=== PATIENT | male | born 1965 ===

== ENCOUNTER 2018-03-13 07:45 | Day surgery (SDC) | payer OTHER ==
[~2018-03-13] VITALS: Ht 185.4 cm; Wt 63.2 kg
[~2018-03-13 07:45] MED LIST: ADVANCED PROBI625 MG PO; ALPHA LIPOIC AC50 MG PO; ATOR10; ATOR40TA; CLARITIN10 MG PO; DIUREX MAX50 MG PO; DULO30 PO; HUMULIN N100 UNIT/1 SC; HYDACE10B; HYDACE5; HYDACE5 PO; HYDACE5325; HYDCHL25; IBUP400 PO; INSLI100I; INSN100I SC; INSUASPI SC; INSULIN GLARGINE; MIRALAX17 GM PO; MONT10T PO; Norco 5-325 Ta1 EACH PO; Novolog Fl100 UNIT/1 SQ; POTA10T; PRAV20 PO; Pravachol80 MG PO; RXHYDACE PO; SPIHYD; Vibramycin100 MG PO
[2018-03-13] MEDS ORDERED: BIOTIN5000 MCG PO (08:33)
[2018-03-13] MEDS ORDERED: Novolog100 UNIT/1 SC (08:39)
[2018-03-13] MEDS ORDERED: BISA5EC PO (08:40)
== END 2018-03-13 10:31 | disposition home or self-care (01) ==
LOC: ORSCSDS 07:45
PROVIDERS: Student in an Organized Health Care Education/Training Program
PROC: 0DJD8ZZ Inspection of Lower Intestinal Tract, Via Natural or Artificial Opening Endoscopic (ICD-10-PCS; principal; 2018-03-13 08:45)
PROC: 0DB58ZX Excision of Esophagus, Via Natural or Artificial Opening Endoscopic, Diagnostic (ICD-10-PCS; principal; 2018-03-13 08:45)
PROC: 0DB68ZX Excision of Stomach, Via Natural or Artificial Opening Endoscopic, Diagnostic (ICD-10-PCS; principal; 2018-03-13 08:45)
PROC: 0DB98ZX Excision of Duodenum, Via Natural or Artificial Opening Endoscopic, Diagnostic (ICD-10-PCS; principal; 2018-03-13 08:45)
DX: K21.9 Gastro-esophageal reflux disease without esophagitis (principal); R13.10 Dysphagia, unspecified; K29.70 Gastritis, unspecified, without bleeding; K44.9 Diaphragmatic hernia without obstruction or gangrene; R63.4 Abnormal weight loss; Z80.0 Family history of malignant neoplasm of digestive organs; R10.9 Unspecified abdominal pain; R15.0 Incomplete defecation; I10 Essential (primary) hypertension; J44.9 Chronic obstructive pulmonary disease, unspecified; E78.5 Hyperlipidemia, unspecified; E11.42 Type 2 diabetes mellitus with diabetic polyneuropathy; Z79.4 Long term (current) use of insulin; F17.210 Nicotine dependence, cigarettes, uncomplicated; Z79.899 Other long term (current) drug therapy
CPT/HCPCS: 82947; 88305; 88342; J7120

== ENCOUNTER → 2019-03-05 | Outpatient (CLI) | payer OTHER ==
[~2019-03-05] MED LIST changes: +BIOTIN5000 MCG PO; +BISA5EC PO; +Novolog100 UNIT/1 SC
[2019-03-05 16:23] LABS: Sodium, Urine, Random 24 mmol/L (20-110)
[2019-03-05 16:57] LABS: Osmolality, Urine 277 mos/kg (15-1400)
== END | disposition home or self-care (01) ==
LOC: LAB 14:57 → LAB SHORT 14:57
PROVIDERS: Physician Assistant
DX: E87.1 Hypo-osmolality and hyponatremia (principal)
CPT/HCPCS: 83935; 84300

== ENCOUNTER → 2022-03-14 | Outpatient (CLI) | payer OTHER ==
[~2022-03-14] MED LIST changes: +Omeprazole20 M1 PO
[2022-03-14 16:48] LABS: Albumin, Blood 4.1 g/dL (3.4-5.0); Albumin/Globulin Ratio 1.1 (0.8-1.8); Bilirubin, Total 0.7 mg/dL (0.1-1.0); Bun/Creatinine Ratio 12.9 (12.0-20.0); Calcium, Blood 9.6 mg/dL (8.5-10.1); Creatinine, Blood 0.7 mg/dL (0.60-1.20); Globulin, Blood 3.7 g/dL (2.2-4.0); Potassium, Blood 4.3 mmol/L (3.5-5.5); Total Protein, Blood 7.8 g/dL (6.4-8.2)
== END | disposition home or self-care (01) ==
LOC: LAB 16:30 → LAB SHORT 16:30
PROVIDERS: Internal Medicine Endocrinology, Diabetes & Metabolism
DX: E10.65 Type 1 diabetes mellitus with hyperglycemia (principal)
CPT/HCPCS: 80053; 83036

== ENCOUNTER 2022-11-30 11:24 | Inpatient (IN) | payer OTHER ==
[~2022-11-30] VITALS: Ht 182.9 cm; Wt 75.0 kg
[2022-11-30] VITALS (21 sets, daily range): BP systolic 79–168; BP diastolic 55–120
[2022-11-30 12:05] LABS: Source, Urine Straight Cath
[2022-11-30 12:05] LABS: BASOPHILS ABSOLUTE AUTO 0.01 K/mm3 (0.00-0.23); BASOPHILS PERCENT AUTO 0 % (0-2); EOSINOPHILS PERCENT AUTO 0 % (0-6); Hematocrit 38.4 % (37.0-53.0); Hemoglobin 14.1 g/dL (13.5-17.5); IMMATURE GRAN ABSOLUTE AUTO 0.07 K/mm3 (0.00-0.10); IMMATURE GRAN PERCENT AUTO 1 % (0-1); LYMPHOCYTES ABSOLUTE AUTO 1.46 K/mm3 (0.84-5.20); LYMPHOCYTES PERCENT AUTO 11 % (21-46); MONOCYTES ABSOLUTE AUTO 1.08 K/mm3 (0.16-1.47); MONOCYTES PERCENT AUTO 8 % (4-13); Mean Corpuscular HGB 31.5 pg (26.0-34.0); Mean Corpuscular HGB Conc 36.7 g/dL (31.5-36.5); Mean Corpuscular Volume 86 fL (80-100); Mean Platelet Volume 9.2 fL (9.1-12.4); NEUTROPHILS ABSOLUTE AUTO 10.44 K/mm3 (1.96-9.15); NEUTROPHILS PERCENT AUTO 80 % (41-73); Platelet Count 286 K/mm3 (150-400); RDW Coefficient Variation 13.7 % (11.7-14.2); RDW Standard Deviation 43.6 fL (35.1-46.3); Red Blood Cell Count 4.47 M/mm3 (4.30-5.90); White Blood Cell Count 13.06 K/mm3 (4.00-11.30)
[2022-11-30 12:20] LABS: Alanine Aminotransfer (ALT/SGP 49 U/L (12-78); Albumin, Blood 3.3 g/dL (3.4-5.0); Alk Phos 90 U/L (50-136); Anion Gap 6 mmol/L (6-16); Aspartate Aminotrans (AST/SGOT 124 U/L (12-37); Bilirubin, Total 1.3 mg/dL (0.1-1.0); Blood Urea Nitrogen 11 mg/dL (8-24); CO2, Blood 28 mmol/L (21-32); Calcium, Blood 8.9 mg/dL (8.5-10.1); Chloride, Blood 94 mmol/L (98-108); Creatinine, Blood 0.69 mg/dL (0.60-1.20); Ethanol (Alcohol), Blood, Med <3 mg/dL; Globulin, Blood 3.3 g/dL (2.2-4.0); Glomerular Filtration Rate 107 (60-); Glucose, Blood 71 mg/dL (70-99); Potassium, Blood 4.1 mmol/L (3.5-5.5); Sodium, Blood 128 mmol/L (136-145); Total Protein, Blood 6.6 g/dL (6.4-8.2)
[2022-11-30 12:20] LABS: Appearance, Urine Clear (Clear); Bilirubin, Urine Neg (Neg); Blood, Urine 4+ (Neg); Color, Urine Yellow (P-Yellow); Glucose Qualitative, Urine Neg (Neg); Ketones, Urine 3+ (Neg); Leukocyte Esterase, Urine Neg (Neg); Nitrite, Urine Neg (Neg); Protein, Urine 2+ (Neg); Specific Gravity, Urine 1.015 (1.003-1.022); Urobilinogen, Urine NORM (Normal)
[2022-11-30 12:27] LABS: Bacteria Few /hpf; Squamous Epithelial Cells Rare /hpf (Few)
[2022-11-30 12:32] LABS: U Amphetamine Screen Not Detected; U Barbituate Screen Not Detected; U Benzodiazapine Screen Not Detected; U Buprenorphine Screen Not Detected; U Cannabinoids Screen Not Detected; U Cocaine Screen Not Detected; U Methadone Screen Not Detected; U Methamphetamine Screen Not Detected; U Opiates Screen Not Detected; U Oxycodone Screen Not Detected; U Phencyclidine Screen Not Detected; U Propoxyphene Screen Not Detected
[2022-11-30 15:14] LABS: Influenza A, PCR NEGATIVE (NEGATIVE); Influenza B, PCR NEGATIVE (NEGATIVE); Resp Syncytial Virus, PCR NEGATIVE (NEGATIVE); SARS-Cov-2 (COVID-19) PCR, MMC NEGATIVE (NEGATIVE)
[2022-11-30 15:54] LABS: Source, Urine Foley catheter
[2022-11-30 16:01] LABS: Appearance, Urine Hazy (Clear); Bilirubin, Urine Neg (Neg); Blood, Urine 3+ (Neg); Color, Urine Yellow (P-Yellow); Glucose Qualitative, Urine 2+ (Neg); Ketones, Urine 2+ (Neg); Leukocyte Esterase, Urine Neg (Neg); Nitrite, Urine Neg (Neg); Protein, Urine 2+ (Neg); Specific Gravity, Urine 1.015 (1.003-1.022); Urobilinogen, Urine NORM (Normal)
[2022-11-30 16:20] LABS: Squamous Epithelial Cells Rare /hpf (Few); White Blood Cells, Urine 0-2 /hpf (0-5)
[2022-11-30 16:21] LABS: Amorphous Light (0-Heavy); Bacteria Mod /hpf; Calcium Oxalate Crystals Mod /hpf
[2022-11-30 17:48] LABS: Prolactin 8.7 ng/mL (2.5-17.4)
[2022-11-30 17:56] LABS: Phosphorus, Blood 2.9 mg/dL (2.5-4.9)
--- NOTE | 2022-11-30 18:45 | NUR ---
Assumed care of pt with Ana Laura RN on arrival to ICU 5 at 1640 from emergency department. Slid from [facility] to bed with several staff including respiratory care. Arrived intubated and on ventilator. Dr Smith in room to see patient. Family at bedside and updated. Neuro: Receiving propofol at 15 mcg/kg/min. Pt had sedation interruption and began fighting ventilator but did not have purposeful movement and did not follow commands. Sedation restarted due to patient looking visibly uncomfortable and fighting ventilator. Mild hypothermia per core temp monitoring. Ruben hugger in place. Resp: 8.0 cm ETT at expected placement of 25 cm at teeth. Vent settings ACVC 14/400/5/30%. SpO2 90% or greater with these settings. Cardiac: SR per monitor. BP borderline. Call placed to Dr Smith to update. Provider prescribed additional bolus of NS, which will be followed by norephinephrine if pt does not respond. GI: OG tube in place, clamped. ABD soft, nondistended. No signs of tenderness with palpation. : Temp das in place. Skin: Many abrasions, areas of pressure injury. Photos placed in chart.
--- NOTE | 2022-11-30 19:00 | NUR ---
ASSUMED CARE OF PT. INTUBATED AND SEDATED AT TIME. VENT 14/400/5/30% BP 90/61 HR 82 TEMP 97.1 TEMP PRICE CATH DRAINING TO GRAVITY WITH ORANGE/YELLOW URINE PRESENT. 800 MLS DRAINED AND DOCUMENTED. SEE FULL ASSESSMENT FOR FURTHER INFORMATION.
[2022-11-30] MEDS ORDERED: ALBU90OI INH (19:30)
[2022-11-30] MEDS ORDERED: Natrol Alpha 3300 MG PO (19:31)
[2022-11-30] MEDS ORDERED: ALEVAZOL56.7 G1 TOP (19:32)
[2022-11-30] MEDS ORDERED: HUMULIN N100 UNIT/3 SC (19:34)
[2022-11-30] MEDS ORDERED: NOVOLOG FL100 UNIT/3 SC (19:34)
[2022-11-30] MEDS ORDERED: Prinivil10 MG PO (19:35)
[2022-11-30] MEDS ORDERED: Crestor20 MG PO (19:35)
[2022-11-30] MEDS ORDERED: TRIDERM28.4 GM TOP (19:36)
--- NOTE | 2022-11-30 23:25 | NUR ---
PT TEMP NOW AT 100.2. FAN ON PT AT THIS TIME WITH ICE PACKS UNDER AXILLARY AREAS.
--- NOTE | 2022-11-30 23:26 | NUR ---
PT GAGGING CONSTANTLY AND FIGHTING THE VENT. PROPOFOL TITRATED TO 17 MCG AT THIS TIME. WILL CONTINUE TO MONITOR FOR MORE TITRATION NEEDS.
[2022-12-01] VITALS (88 sets, daily range): BP systolic 77–143; BP diastolic 54–72
[2022-12-01 03:34] LABS: BASOPHILS ABSOLUTE AUTO 0.04 K/mm3 (0.00-0.23); BASOPHILS PERCENT AUTO 0 % (0-2); EOSINOPHILS ABSOLUTE AUTO 0.01 K/mm3 (0.00-0.68); EOSINOPHILS PERCENT AUTO 0 % (0-6); Hematocrit 36.3 % (37.0-53.0); IMMATURE GRAN ABSOLUTE AUTO 0.03 K/mm3 (0.00-0.10); IMMATURE GRAN PERCENT AUTO 0 % (0-1); LYMPHOCYTES PERCENT AUTO 13 % (21-46); MONOCYTES ABSOLUTE AUTO 0.82 K/mm3 (0.16-1.47); MONOCYTES PERCENT AUTO 7 % (4-13); Mean Corpuscular HGB 31.9 pg (26.0-34.0); Mean Corpuscular HGB Conc 35.8 g/dL (31.5-36.5); Mean Corpuscular Volume 89 fL (80-100); Mean Platelet Volume 9.3 fL (9.1-12.4); NEUTROPHILS ABSOLUTE AUTO 9.12 K/mm3 (1.96-9.15); NEUTROPHILS PERCENT AUTO 79 % (41-73); Platelet Count 232 K/mm3 (150-400); RDW Coefficient Variation 14.1 % (11.7-14.2); RDW Standard Deviation 45.5 fL (35.1-46.3); Red Blood Cell Count 4.08 M/mm3 (4.30-5.90); White Blood Cell Count 11.52 K/mm3 (4.00-11.30)
[2022-12-01 03:54] LABS: Albumin, Blood 2.7 g/dL (3.4-5.0); Albumin/Globulin Ratio 0.9 (0.8-1.8); Bilirubin, Total 1.1 mg/dL (0.1-1.0); Bun/Creatinine Ratio 16.7 (12.0-20.0); Calcium, Blood 8.4 mg/dL (8.5-10.1); Creatinine, Blood 0.6 mg/dL (0.60-1.20); Globulin, Blood 2.9 g/dL (2.2-4.0); Magnesium, Blood 1.9 mg/dL (1.6-2.4); Phosphorus, Blood 2.9 mg/dL (2.5-4.9); Potassium, Blood 3.6 mmol/L (3.5-5.5); Total Protein, Blood 5.6 g/dL (6.4-8.2)
--- NOTE | 2022-12-01 04:03 | NUR ---
REPORT GIVEN TO LACIE Mariee RN.
--- NOTE | 2022-12-01 04:06 | NUR ---
THIS RN TO ASSUME PRIMARY CARE OF PT.
--- NOTE | 2022-12-01 06:24 | NUR ---
SHIFT SUMMARY: NO ACUTE CHANGES OVERNIGHT; PT REMAINS INTUBATED AND SEDATED WITH VENT SETTINGS AC/VC 14/400/5/30% AND PROPOFOL GTT @ 30 MCG/KG/HR. PT RESPONSIVE TO PAIN STIMULI BUT IS NOT OPENING EYES/FOLLOWING DIRECTIONS. PT LUNG SOUNDS ARE CLEAR THROUGHOUT; SPO2 98<, PT COUGHING FREQUENTLY. PT SR ON MONITOR WITH SBP 90'S AND LEVO GTT @ 4 MCG. PT HAS OGT IN PLACE AND CLAMPED, FLUSHED FINE. TEMP FOLET PATENT AND DRAINING TO GRAVITY WITH DARK YELLOW URINE OUTPUT. BED LOWERED, WILL CONTINUE TO MONITOR UNTIL ONCOMING RN ARRIVES.
--- NOTE | 2022-12-01 09:36 | NUR ---
AM NOTE... ASSUMED CARE OF PT AT 0700. PT IS INTUBATED AND SEDATED, VENT SETTINGS ARE AC/VC: 14/400/5/30% WITH O2 SAT>95% L/S CLEAR T/O. HE IS SEDATED ON PROPOFOL AT 30MCG/KG. HE IS IN SR IN THE 60'S-70'S, BP IS SOFT, LEVOPHED DRIP RUNNING AT 2MCG/MIN TO KEEP MAPS>65. NO EDEMA IS NOTED ON THIS ASSESSMENT. OG TUBE IS CLAMPED AT THIS TIME, BT PRESENT AND HYPOACTIVE, ABD IS SOFT TO PALPATION. THE PT'S TEMP PRICE IS PATENT AND DRAINING TO GRAVITY. PT'S CURRENT TEMP IS 98.4. THE PT'S RIGHT PUPIL IS APROX 4MM MISSHAPEN AND UNRESPONSIVE, LEFT PUPIL IS 2 AND BRISK. WILL CONTINUE TO MONITOR.
[2022-12-01 15:59] LABS: Acinetobacter baumannii DNA Not Detected copy/mL (NOT DETECT); Enterobacter cloacae DNA Not Detected copy/mL (NOT DETECT); Escherichia coli DNA Not Detected copy/mL (NOT DETECT); Haemophilus influenzae DNA Not Detected copy/mL (NOT DETECT); Klebsiella aerogenes DNA Not Detected copy/mL (NOT DETECT); Klebsiella oxytoca DNA Not Detected copy/mL (NOT DETECT); Klebsiella pneumoniae DNA Not Detected copy/mL (NOT DETECT); Moraxella catarrhalis DNA Not Detected copy/mL (NOT DETECT); Proteus sp DNA Not Detected copy/mL (NOT DETECT); Pseudomonas aeruginosa DNA Not Detected copy/mL (NOT DETECT); Serratia marcescens DNA Not Detected copy/mL (NOT DETECT); Staphylococcus aureus DNA Not Detected copy/mL (NOT DETECT); Streptococcus agalactiae DNA Not Detected copy/mL (NOT DETECT); Streptococcus pneumoniae DNA Not Detected copy/mL (NOT DETECT); Streptococcus pyogenes DNA Not Detected copy/mL (NOT DETECT)
[2022-12-01 16:00] LABS: Adenovirus DNA Not Detected (NOT DETECT); Chlamydia pneumonia Not Detected (NOT DETECT); Human Coronavirus RNA Not Detected (NOT DETECT); Human Metapneumovirus RNA Not Detected (NOT DETECT); Influenza virus A RNA Not Detected (NOT DETECT); Influenza virus B RNA Not Detected (NOT DETECT); Legionella pneumophila Not Detected (NOT DETECT); Mycoplasma pneumoniae Not Detected (NOT DETECT); Parainfluenza virus RNA Not Detected (NOT DETECT); Respiratory syncytial Vir RNA Not Detected (NOT DETECT); Rhinovirus+Enterovirus RNA Not Detected (NOT DETECT)
--- NOTE | 2022-12-01 17:36 | NUR ---
SHIFT SUMMARY.... NO ACUTE NEGATIVE CHANGES NOTED THIS SHIFT. THE PT'S SEDATION AND LEVOPHED WAS OFF FROM 0945 TO 1400 WHEN THE PT WAS TAKEN TO CT FOR A HEAD CT, ONCE BACK IN THE ROOM THE SEDATION WAS STOPPED AT 1445. WITH THE SEDATION OFF THE PT WILL RESPOND TO NOXIOUS STIMULI SUCH ORAL CARE, HE WILL OPEN HIS EYES, AND SHAKE HIS HEAD BACK AND FORTH BUT WILL NOT FOLLOW DIRECTIONS. TUBE FEEDS WERE STARTED PER ORDERS AT 1445, VITAL HP AT 30MLS/HR WITH 30ML WATER FLUSHES Q4HRS. THE PT'S CBGs ARE NOW CHECKED Q4. A SPUTUM SAMPLE WAS SENT TO THE LAB D/T INCREASED MODERATE AMOUNTS OF THICK CREAMY YELLOW SECRETIONS (PROVIDER AWARE.). NO CHANGES WERE MADE TO THE VENT SETTINGS: AC/VC:14/400/5/30%. THE PT'S TEMP PRICE IS PATENT AND DRAINED 350MLS OF RAH URINE THIS SHIFT. PT HAS NOT HAD A BM. THE PT'S FAMILY HAS BEEN AT THE BEDSIDE MOST OF THIS SHIFT. PER THE PT'S MOTHER THE PT IS BLIND IN HIS RIGHT EYE AND THE PUPIL HAS BEEN THAT WAY SINCE HIS TBI. WILL CONTINUE TO MONITOR UNTIL REPORT IS GIVEN TO ONCOMING RN.
--- NOTE | 2022-12-01 21:22 | NUR ---
ASSUMPTION OF CARE/ASSESSMENT: ASSUMED CARE OF PT AT 1900; REPORT RECIEVED FROM BRITNEY CASTILLO. PT INTUBATED WITH SETTINGS AC/VC 14/400/5/30%, PT NOT SEDATED AND REMAINS AMS, RESPONSIVE TO VERBAL STIMULI BUT DOES NOT FOLLOWING DIRECTIONS. PT OBSERVED RESTLESS IN BED FREQUENTLY AND COUGHING/TACHYNEIC ON VENT. PT MEDICATED WITH FENTANYL PER EMAR AND APPEARS TO HAVE HELPED WITH COMFORT AND VENT COMPLIANCE. PT SR ON MONITOR WITH HR 70-80 AND SBP 110-130; CONTINUOUS SENIOR DATA SCIENTIST IN PLACE. PT LUNG SOUNDS ARE CLEAR, SPO2 96< AND ETT SUCTIONING HAS MODERATE, THICK SECRETIONS. ABD SOFT, NON-TENDER AND HYPOACTIVE BOWEL SOUNDS IN ALL QUADRANTS; OGT IN PLACE AND VHP INFUSING AT 30 MLS/HR. TEMP PRICE IN PLACE AND DRAINING TO GRAVITY; URINE DARK YELLOW AND CLEAR, PT REMAINS AFEBRILE. PT R. WRIST IN RESTRAINT AND L. WRIST OUT OF RESTRAINT DUE TO L. ARM BEING FLACCID; PT MOVING BOTH LEGS FREQUENTLY IN BED, L. LEG OBSERVED TO BE MORE WEAK COMPARED TO R. LEG. NS @ 100 MLS/HR. BED LOWERED, WILL CONTINUE TO MONITOR.
[2022-12-02] VITALS (73 sets, daily range): BP systolic 82–160; BP diastolic 40–92
[2022-12-02 03:16] LABS: Hematocrit 36.1 % (37.0-53.0); Hemoglobin 12.6 g/dL (13.5-17.5); Mean Corpuscular HGB 31.7 pg (26.0-34.0); Mean Corpuscular HGB Conc 34.9 g/dL (31.5-36.5); Mean Corpuscular Volume 91 fL (80-100); Mean Platelet Volume 9.3 fL (9.1-12.4); Platelet Count 238 K/mm3 (150-400); RDW Coefficient Variation 14.2 % (11.7-14.2); RDW Standard Deviation 48.1 fL (35.1-46.3); Red Blood Cell Count 3.97 M/mm3 (4.30-5.90); White Blood Cell Count 9.49 K/mm3 (4.00-11.30)
[2022-12-02 03:39] LABS: Bun/Creatinine Ratio 21.1 (12.0-20.0); Calcium, Blood 8.3 mg/dL (8.5-10.1); Creatinine, Blood 0.52 mg/dL (0.60-1.20); Potassium, Blood 4.2 mmol/L (3.5-5.5)
--- NOTE | 2022-12-02 06:25 | NUR ---
SHIFT SUMMARY: NO ACUTE CHANGES THROUGHOUT THE SHIFT; VSS. PT REMAINS INTUBATED WITH SETTINGS AC/VC 14/400/5/30% AND SEDATION STARTED AGAIN AT 0500, PROPOFOL GTT @ 20 MCG. THROUGHOUT THE NIGHT PT INCREASININGLY RESTLESS/AGGITATED IN BED, SHAKING HEAD, SWINGING LEGS OFF SIDE OF BED; PT MEDICATED WITH FENTANYL BUT STARTED NEEDING TOO FREQUENT OF DOSES. PROPOFOL GTT STARTED FOR VENT COMPLIANCE AND COMFORT. WILL CONTINUE TO MONITOR UNTIL ONCOMING RN ARRIVES.
--- NOTE | 2022-12-02 12:37 | NUR ---
REASSESSMENT SEDATION TURNED OFF AT 1045 AND PT HAS BEEN WAKING UP SLOWLY SINCE THEN. HE IS STILL DROWSY, BUT IS FOLLOWING COMMANDS WHEN PROMPTED. RT SWITCHED PT TO SPONTANEOUS MODE, PRESSURE OF 8, PEEP 5. PT IS DOING WELL ON THESE SETTINGS WITH VOLUMES IN THE 400-500S, BUT RR HAS BEEN A LITTLE SLOW, CURRENTLY 8. DR. COOK WAS AT THE BEDSIDE AND EVALUATED PT. PLAN IS TO RE EVALUATE IN AN HOUR AND GO FROM THERE. TUBE FEED STOPPED PER DR. COOK'S ORDERS IN CASE OF EXTUBATION TODAY. PT'S LUNGS REMAIN CLEAR. SCANT SPUTUM PRODUCTION, BUT MODERATE ORAL SECRETIONS. SR, BP STABLE. PRICE WITH CL YELLOW OUTPUT. PT'S MOTHER AND DAUGHTER ARE AT THE BEDSIDE. DR. COOK UPDATED PT'S MOTHER WHO IS PRIMARILY BENINESE SPEAKING. DAUGHTER UPDATED ROUTINELY BY NURSING STAFF SHE IS PRIMARILY BOLIVIAN SPEAKING.
--- NOTE | 2022-12-02 13:24 | NUR ---
EXTUBATE PT CONTINUED TO DO WELL ON WEANING TRIAL. DR. COOK GAVE ORDER TO EXTUBATE. RT EXTUBATED PT AT 1315. PT RESISTED THE NASAL CANNULA BEING PLACED ON HIS FACE AND WAS MAINTAINNG SATS OF 96% ON RA SO IT WAS LEFT OFF. PT COUGHING UP SMALL AMT OF SPUTUM. AT FIRST HE NEEDED SOME SUCTIONING TO GET IT OUT OF THE BACK OF HIS THROAT, BUT NOW HE APPEARS TO BE CLEARING AND SWALLOWING THE SPUTUM. PT'S MOTHER AT THE BEDSIDE. CONTINUING TO MONITOR.
--- NOTE | 2022-12-02 16:49 | NUR ---
SHIFT SUMMARY PT WAS EXTUBATED EARLY THIS AFTERNOON AND HAS BEEN DOING WELL ONR A. CURRENT SPO2 IS 98% WITH RR 17. PT COUGHS A LOT WHEN HE IS AWAKE, BUT IT STOPS WHEN HE IS RESTING. PT'S BERNABE REPORTS THAT AT BASELINE PT HAS A SIGNIFICANT "SMOKER'S COUGH" THAT SOUNDS SIMILAR TO HIS CURRENT COUGH. PT APPEARS TO STILL BE CLEARING HIS SECRETIONS BY EITHER SPITTING THEM OUT OR SWALLOWING THEM. LUNGS ARE CLEAR AFTER PT HAS COUGHED. PT IS STILL DROWSY, BUT WAKES TO VOICE. HE NODS OR SHAKES HIS HEAD TO ANSWER QUESTIONS. HE HAS NOT ATTEMPTED TO SPEAK YET, EVEN WHEN PROMPTED. HE APPEARS AGITATED OR IRRITATED WHEN AWAKE. PRICE DRAINING CL YELLOW URINE WITH GOOD OUTPUT. FAMILY HAS BEEN UPDATED THROUGHOUT THE DAY BY DR. COOK.
--- NOTE | 2022-12-02 19:00 | NUR ---
ASSUMED CARE CARE WAS ASSUMED OF THE PT AT 1900. PT ON RA, O2 SATS >95%. PT HAS HACKING, SEMI-PRODUCITVE COUGH. COUGHING UP COPIOUS AMOUNTS OF SPUTUM. PT AT TIMES INDEPENDENTLY SELF SUCTIONING. RESISTANT TO HAVE HELP FROM RN. CARIDAC MONITORING REFLECTING NSR, SBP 120s. HR 70s. TEMP PRICE PATENT AND DRAINING TO GRAVITY.
--- NOTE | 2022-12-02 21:45 | NUR ---
THIS RN TO ASSUME PRIMARY CARE.
[2022-12-03] VITALS (18 sets, daily range): BP systolic 103–131; BP diastolic 47–73
[2022-12-03 03:43] LABS: BASOPHILS ABSOLUTE AUTO 0.04 K/mm3 (0.00-0.23); BASOPHILS PERCENT AUTO 0 % (0-2); EOSINOPHILS ABSOLUTE AUTO 0.03 K/mm3 (0.00-0.68); EOSINOPHILS PERCENT AUTO 0 % (0-6); Hematocrit 38.1 % (37.0-53.0); Hemoglobin 13.4 g/dL (13.5-17.5); IMMATURE GRAN ABSOLUTE AUTO 0.04 K/mm3 (0.00-0.10); IMMATURE GRAN PERCENT AUTO 0 % (0-1); LYMPHOCYTES ABSOLUTE AUTO 1.55 K/mm3 (0.84-5.20); LYMPHOCYTES PERCENT AUTO 14 % (21-46); MONOCYTES ABSOLUTE AUTO 0.71 K/mm3 (0.16-1.47); MONOCYTES PERCENT AUTO 6 % (4-13); Mean Corpuscular HGB 31.5 pg (26.0-34.0); Mean Corpuscular HGB Conc 35.2 g/dL (31.5-36.5); Mean Corpuscular Volume 90 fL (80-100); Mean Platelet Volume 9.5 fL (9.1-12.4); NEUTROPHILS ABSOLUTE AUTO 8.95 K/mm3 (1.96-9.15); NEUTROPHILS PERCENT AUTO 79 % (41-73); Platelet Count 284 K/mm3 (150-400); RDW Standard Deviation 46.3 fL (35.1-46.3); Red Blood Cell Count 4.25 M/mm3 (4.30-5.90); White Blood Cell Count 11.32 K/mm3 (4.00-11.30)
[2022-12-03 04:07] LABS: Albumin, Blood 2.5 g/dL (3.4-5.0); Albumin/Globulin Ratio 0.7 (0.8-1.8); Bilirubin, Total 0.8 mg/dL (0.1-1.0); Bun/Creatinine Ratio 15.8 (12.0-20.0); Calcium, Blood 8.6 mg/dL (8.5-10.1); Creatinine, Blood 0.51 mg/dL (0.60-1.20); Globulin, Blood 3.5 g/dL (2.2-4.0); Magnesium, Blood 1.9 mg/dL (1.6-2.4); Phosphorus, Blood 2.1 mg/dL (2.5-4.9); Potassium, Blood 3.7 mmol/L (3.5-5.5)
--- NOTE | 2022-12-03 06:30 | NUR ---
SHIFT SUMMARY: NO ACUTE CHANGES THROUGHOUT THE NIGHT; VSS THROUGHOUT THE SHIFT. PT SLEPT ON AND OFF. PT REPOSITIONS SELF AND DECLINES ANY PILLOWS OR BLANKETS IN BED. PT HAD A BOWEL MOVEMENT THIS SHIFT; DEPENDS IN PLACE, PRICE PATENT AND DRAINING TO GRAVITY. PT CONTINUES TO HAVE PRODUCTIVE, WET COUGH AND IS USING ORAL SUCTIONING INDEPENDENTLY. BED LOWERED, CALL LIGHT IN REACH. WILL CONTINUE TO MONITOR UNTIL ONCOMING RN ARRIVES.
--- NOTE | 2022-12-03 08:42 | NUR ---
CARE ASSUMPTION DURING BEDSIDE SHIFT REPORT Karthik MEDELLIN RN THE PT IS SITTING IN BED AWAKE TRACKING THIS RN I WALKED ACROSS HIS ROOM. PT'S ABILITY TO COMMUNICATE IS LIMITED DUE TO LIMITED UPPER SORBIAN BUT PT DOES APPEAR TO UNDERSTAND ME WHEN HE IS SPOKEN TO HE IS FOLLOWING COMMANDS AND NODDING HIS HEAD IN AGREEMENT. MONITOR SHOWING SB 50'S. UPDATE THIS RN USED PROFESSOR OF KINESIOLOGY PHONE TO SPEEK WITH THE PT, AT THIS TIME THE PT WAS ASKED ABOUT PAIN WHERE HE EXPRESSED SEVERE MODERATE CHEST PRESSURE, PT DENIED ANY FEELINGS OF SOB. PT IS ORIENTED X3. PROVIDER UPDATED ON PT'S REPORT OF CHEST PRESSURE, EKG AND TROPONIN ORDERED.
--- NOTE | 2022-12-03 14:57 | NUR ---
CALLED TO PT ROOM BY A VOLUNTEER FROM [facility]. VOLUNTEER STATES SHE DIDN'T SEE A NPO SIGN SO THOUGHT SHE COULD GIVE PT A COMMUNION WAFER AND THEN GAVE BECAUSE PT WAS "COUGHING". WENT TO ROOM, PT EVALUATED EARLIER IN DAY AND APPROVED FOR PUREE DIET, SITTING AT 90 DEGREES, SUPERVISION, ECT. PT LAYING DOWN FLAT WHEN I ENTERED ROOM. SAT UP TO 90'S, PT COUGHING AND HAS A CHOKING APPERANCE, SUCTIONED ORAL CAVITY AND CLEARED FLUID AND SALIVA, RECOVERED AFTER A FEW MINUTES. NOTIFIED HEAT TREATMENT TECHNICIAN AND PROVIDER, NO NEW ORDERS AT THIS TIME. SATS 99% WILL CONTINUE TO MONITOR.
--- NOTE | 2022-12-03 15:11 | NUR ---
ATTEMPTED COMMODE ATTEMPTED TO USE LIFT TO PLACE PT ON COMMODE FOLLOWING BEDPAN REFUSAL. PT VISIBLY FRUSTRATED AND ATTEMPTING TO REMOVE LEGS FROM PROPER POSITIONING WHILE IN LIFT. PT UNABLE TO HOLD SELF UPRIGHT WITHOUT 3P STAFF ASSIST. PT UNABLE TO FOLLOW VERBAL INSTRUCTIONS FROM THIS RN. PT PLACED BACK IN BED AND EDUCATED ON SAFETY. DISCUSSED PLAN WITH PT TO USE BEDPAN UNTIL ABLE TO FOLLOW INSTRUCTION. PT VISIBLY FRUSTRATED BY THIS; FROWNING AND GRUNTING DURING DISCUSSION. BED ALARM ON. CALL LIGHT WITHIN REACH.
--- NOTE | 2022-12-03 18:09 | NUR ---
END OF SHIFT NOTE ASSUMED CARE OF THIS PT THIS AFTERNOON. PT LETHARGIC, SLOUCHED TO THE LEFT IN BED. REPOSITIONED WITH PILLOWS FREQUENTLY. UNABLE TO FULLY ASSESS ORIENTATION DUE TO LACK OF ENGAGEMENT FROM PT. ABLE TO FOLLOW SOME COMMANDS, REFUSES TO FOLLOW OTHERS. PER PT DAUGHTER, PT IS FLUENT IN MONTSERR[place] AND ONLY OCCASIONALLY NEEDS TO SAY A WORD IN GERMAN. HR 80'S, BP STABLE. SPO2 >95% ON RA. PRODUCTIVE COUGH, PT ABLE TO SELF SUCTION. SEE PREVIOUS NOTE REGARDING POTENTIAL ASPIRATION. PT BLADDER SCANNED R/T INABILITY TO URINATE, VOLUME 270. PT ABLE TO VOID AFTER SEVERAL MINUTES IN URINAL. NO BM, SEE PREVIOUS NOTE REGARDING ATTEMPT TO USE COMMODE. BED ALARM ON, CALL LIGHT WITHIN REACH.
--- NOTE | 2022-12-03 21:40 | NUR ---
NIA PLACEMENT PATIENT ATTEMPTING TO GET OOB MULTIPLE TIMES. PATIENT UNSTEADY AND VERY WEAK, MAXIMUM ASSIST D/T Hx CVA AND WEAKNESS. PATIENT CONFUSED AND NOT FOLLOWING COMMANDS. UNABLE TO REDIRECT PATIENT AND PATIENT PULLING/PUSHING AGAINST STAFF WHILE ATTEMPTING TO GET PATIENT BACK INTO BED SAFELY. CALL PLACED TO RESIDENT, ORDER FOR NIA VEST RECIEVED. PATIENT TOLERATING VEST WELL AT THIS TIME, NO SIGNS OF DISTRESS NOTED. SEE INITIATION ASSESSMENT. CALL LIGHT IN REACH, BED IN LOW POSITION, BED ALARM ON.
[2022-12-04 05:47] VITALS: BP 129/66
--- NOTE | 2022-12-04 06:29 | NUR ---
SHIFT SUMMARY PATIENT ALERT, ORIENTED x2, WITH Hx CVA AND TBI, IMPULSIVE AND WILL SWAT AT STAFF AT TIMES. NIA VEST AND BED ALARM ON FOR SAFETY D/T IMPULSIVITY AND PATIENT ATTEMPTING TO GET OOB MULTIPLE TIMES DURING THE NIGHT. PATIENT VERY WEAK AND UNABLE TO HOLD SELF UP. VITALS STABLE, PATIENT ON RA WITH O2 SAT >90%. PATIENT WITH OCCASIONAL NONPRODUCTIVE COUGH, ATTEMPTS TO USE SUCTION. PATIENT ABLE TO HAVE BOWEL MOVEMENT DURING THE NIGHT, USING URINAL WITH ASSISTANCE PATIENT WILL GRAB AT LINES/CORDS/URINAL ETC. ATTENDS IN PLACE. NO OTHER ACUTE CHANGES THIS SHIFT, WILL REPORT TO DAY SHIFT RN.
[2022-12-04 07:39] VITALS: BP 127/65
[2022-12-04 07:59] LABS: BASOPHILS ABSOLUTE AUTO 0.02 K/mm3 (0.00-0.23); BASOPHILS PERCENT AUTO 0 % (0-2); EOSINOPHILS ABSOLUTE AUTO 0.11 K/mm3 (0.00-0.68); EOSINOPHILS PERCENT AUTO 1 % (0-6); Hematocrit 37.1 % (37.0-53.0); IMMATURE GRAN ABSOLUTE AUTO 0.03 K/mm3 (0.00-0.10); IMMATURE GRAN PERCENT AUTO 0 % (0-1); LYMPHOCYTES ABSOLUTE AUTO 1.36 K/mm3 (0.84-5.20); LYMPHOCYTES PERCENT AUTO 16 % (21-46); MONOCYTES ABSOLUTE AUTO 0.77 K/mm3 (0.16-1.47); MONOCYTES PERCENT AUTO 9 % (4-13); Mean Corpuscular HGB 31.4 pg (26.0-34.0); Mean Corpuscular Volume 90 fL (80-100); NEUTROPHILS ABSOLUTE AUTO 6.09 K/mm3 (1.96-9.15); NEUTROPHILS PERCENT AUTO 73 % (41-73); Platelet Count 284 K/mm3 (150-400); RDW Coefficient Variation 14.1 % (11.7-14.2); RDW Standard Deviation 46.2 fL (35.1-46.3); Red Blood Cell Count 4.14 M/mm3 (4.30-5.90); White Blood Cell Count 8.38 K/mm3 (4.00-11.30)
[2022-12-04 08:18] LABS: Albumin, Blood 2.8 g/dL (3.4-5.0); Albumin/Globulin Ratio 0.8 (0.8-1.8); Bilirubin, Total 1.1 mg/dL (0.1-1.0); Bun/Creatinine Ratio 18.1 (12.0-20.0); Calcium, Blood 8.9 mg/dL (8.5-10.1); Creatinine, Blood 0.44 mg/dL (0.60-1.20); Globulin, Blood 3.3 g/dL (2.2-4.0); Potassium, Blood 3.8 mmol/L (3.5-5.5); Total Protein, Blood 6.1 g/dL (6.4-8.2)
[2022-12-04 11:24] VITALS: BP 129/67
[2022-12-04 15:43] VITALS: BP 125/69
--- NOTE | 2022-12-04 17:14 | NUR ---
END OF SHIFT NOTE PT ALERT AND ORIENTED X1-2, WITH HX CVA AND TBI PT REMAINS IMPULSIVE. NOT COMPLIANT WITH ALL COMMANDS. NIA VEST ON FOR PT SAFETY D/T ATTEMPTS TO GET OUT OF BED AND SIGNIFICANT WEAKNESS. HR 70'S, BP STABLE. DENIES CP/PRESSURE. SPO2 >95% ON RA, DENIES SOB. FREQUENT COUGH WITH MODERATE THIN SECRETIONS, PT ABLE TO SELF SUCTION. UP TO CHAIR WITH PHYSICAL THERAPY, ABLE TO STAND AND PIVOT. PT ABLE TO USE URINAL, INCONTINENT AT TIMES. NO BM THIS SHIFT. FAMILY AT BEDSIDE T/O SHIFT. CALL LIGHT WITHIN REACH, NO FURTHER NEEDS AT THIS TIME.
[2022-12-04 21:25] VITALS: BP 139/77
--- NOTE | 2022-12-04 21:40 | NUR ---
I CALLED DR DE LA TORRE ABOUT CBG OF 369. SHE ORDERED AN ADDITIONAL 5UNITS OF REGULAR INSULIN ON TOP OF THE SSC OF 5UNITS. 10 UNITS TOTAL FOR HS DOSAGE.
[2022-12-05] VITALS: BP 146/72
[2022-12-05 03:37] VITALS: BP 135/66
[2022-12-05 04:17] LABS: BASOPHILS ABSOLUTE AUTO 0.04 K/mm3 (0.00-0.23); BASOPHILS PERCENT AUTO 1 % (0-2); EOSINOPHILS ABSOLUTE AUTO 0.09 K/mm3 (0.00-0.68); EOSINOPHILS PERCENT AUTO 1 % (0-6); Hematocrit 35.8 % (37.0-53.0); Hemoglobin 12.5 g/dL (13.5-17.5); IMMATURE GRAN ABSOLUTE AUTO 0.03 K/mm3 (0.00-0.10); IMMATURE GRAN PERCENT AUTO 0 % (0-1); LYMPHOCYTES ABSOLUTE AUTO 1.49 K/mm3 (0.84-5.20); LYMPHOCYTES PERCENT AUTO 19 % (21-46); MONOCYTES ABSOLUTE AUTO 0.77 K/mm3 (0.16-1.47); MONOCYTES PERCENT AUTO 10 % (4-13); Mean Corpuscular HGB 31.3 pg (26.0-34.0); Mean Corpuscular HGB Conc 34.9 g/dL (31.5-36.5); Mean Corpuscular Volume 90 fL (80-100); Mean Platelet Volume 9.4 fL (9.1-12.4); NEUTROPHILS PERCENT AUTO 69 % (41-73); Platelet Count 307 K/mm3 (150-400); RDW Coefficient Variation 13.9 % (11.7-14.2); RDW Standard Deviation 45.6 fL (35.1-46.3); White Blood Cell Count 7.72 K/mm3 (4.00-11.30)
[2022-12-05 04:42] LABS: Albumin, Blood 2.6 g/dL (3.4-5.0); Albumin/Globulin Ratio 0.8 (0.8-1.8); Bilirubin, Total 0.6 mg/dL (0.1-1.0); Bun/Creatinine Ratio 34.5 (12.0-20.0); Calcium, Blood 8.7 mg/dL (8.5-10.1); Creatinine, Blood 0.46 mg/dL (0.60-1.20); Globulin, Blood 3.4 g/dL (2.2-4.0); Potassium, Blood 3.6 mmol/L (3.5-5.5)
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
[2022-12-05 07:18] VITALS: BP 129/70
--- NOTE | 2022-12-05 11:15 | NUR ---
call to doc about cbg patient had a high blood sugar 500 on the cbg machine. this rn called md jean and informed him of the blood sugar. patient changed to high correction scale. lab down to draw sugar. will recheck sugar in an hour. see orders.
[2022-12-05 11:38] VITALS: BP 126/68
--- NOTE | 2022-12-05 11:57 | NUR ---
POSSIBLE ASPIRATION patient eating lunch with this rn supervision. patient eating mechanical soft and patient began to have coughing episode, coughing up vegies from his lunch. this rn suctioned until patient refused suction, but patient able to cough up food. this rn changed diet back to puree and ada as a restriction
[2022-12-05 11:58] LABS: Glucose, Blood 470 mg/dL (70-99)
[2022-12-05 15:32] VITALS: BP 143/67
--- NOTE | 2022-12-05 18:24 | NUR ---
SHIFT SUMMARY patient is alert and oriented to self, person, and family. when informing the patient he is not at home and at the hospital patient will remember,but forgets after a short time period. patient up to bedside comode with a two person assit. patient has sat in chair all day and refusing to get into bed. patient refused bed bath. vital signs have remained stable throughout this rns shift. blood sugars have improved. medical no tele. plan of care is up to date.
[2022-12-05 19:26] VITALS: BP 120/64
--- NOTE | 2022-12-05 20:59 | NUR ---
CALLED DR. DE LA TORRE ABOUT CBG OF 464 DR. DE LA TORRE WANTS A TOTAL OF 10 UNITS OF INSULIN GIVEN AND A RECHECK 2 HOURS AFTER GIVEN HIS INSULIN. SHE WANTS TO BE UPDATED WITH WHAT HIS CBG IS.
[2022-12-06 03:57] VITALS: BP 110/63
--- NOTE | 2022-12-06 06:16 | NUR ---
SHIFT SUMMARY PT IS A&O TO SELF, PERSON, AND PLAACE. HE HAS BEEN MORE ORIENTED AND COOPERATIVE THIS SHIFT. HE IS MED NO TELE AND HAS BEEN ON RA ALL NIGHT. THE PT HAS REFUSED TO GET BACK TO BED AND PREFERS TO BE UP IN THE CHAIR. NO ACUTE EVENTS. FIRE IGNITION RISK HAS BEEN ASSESSED. SEE NOTES FOR ANY UPDATES.
[2022-12-06 08:06] LABS: BASOPHILS ABSOLUTE AUTO 0.04 K/mm3 (0.00-0.23); BASOPHILS PERCENT AUTO 1 % (0-2); EOSINOPHILS ABSOLUTE AUTO 0.19 K/mm3 (0.00-0.68); EOSINOPHILS PERCENT AUTO 2 % (0-6); Hematocrit 35.1 % (37.0-53.0); Hemoglobin 12.3 g/dL (13.5-17.5); IMMATURE GRAN ABSOLUTE AUTO 0.02 K/mm3 (0.00-0.10); IMMATURE GRAN PERCENT AUTO 0 % (0-1); LYMPHOCYTES ABSOLUTE AUTO 1.56 K/mm3 (0.84-5.20); LYMPHOCYTES PERCENT AUTO 19 % (21-46); MONOCYTES ABSOLUTE AUTO 0.62 K/mm3 (0.16-1.47); MONOCYTES PERCENT AUTO 8 % (4-13); Mean Corpuscular HGB 31.7 pg (26.0-34.0); Mean Corpuscular Volume 91 fL (80-100); Mean Platelet Volume 9.1 fL (9.1-12.4); NEUTROPHILS ABSOLUTE AUTO 5.69 K/mm3 (1.96-9.15); NEUTROPHILS PERCENT AUTO 70 % (41-73); Platelet Count 279 K/mm3 (150-400); RDW Coefficient Variation 14.2 % (11.7-14.2); RDW Standard Deviation 47.2 fL (35.1-46.3); Red Blood Cell Count 3.88 M/mm3 (4.30-5.90); White Blood Cell Count 8.12 K/mm3 (4.00-11.30)
[2022-12-06 08:19] VITALS: BP 125/65
[2022-12-06 08:27] LABS: Bun/Creatinine Ratio 37.4 (12.0-20.0); Calcium, Blood 8.3 mg/dL (8.5-10.1); Creatinine, Blood 0.45 mg/dL (0.60-1.20); Potassium, Blood 3.7 mmol/L (3.5-5.5)
--- NOTE | 2022-12-06 09:17 | NUR ---
care assumption this rn assumed care at 0700. vital signs stable. medical no tele. patient reports no shortness of breath, pain, or chest pain/pressure. see shift assessment for further detials. family at bedside. speech in room to see patient. patient has wounds scattered throughout from fall at home, see pictures in chart. call light within reach. plan of care is up to date.
[2022-12-06 11:54] VITALS: BP 104/59
[2022-12-06 16:32] VITALS: BP 119/62
--- NOTE | 2022-12-06 17:38 | NUR ---
shift summary patient received a one time additional correction for blood sugar this afternoon, see emar and orders. vitals have remained stable. patient had bed bath and linen change. patient sitting in chair. when eating patient is supervised. plan for [facility] to come see patient tomorrow to see if able to go there. plan of care up to date. no acute changes. chair alarm on and call light within reach.
[2022-12-06 19:00] VITALS: BP 109/59
--- NOTE | 2022-12-06 19:55 | NUR ---
PT BEING TRANSFERED TO 351. REPORT GIVEN TO ELDER CASTILLO
[2022-12-06 20:21] VITALS: BP 113/66
[2022-12-07 03:35] VITALS: BP 105/50
--- NOTE | 2022-12-07 06:15 | NUR ---
SHIFT SUMMARY PT AND FAMILY ORIENTED TO ROOM AND UNIT. PT REQUESTED SOMETHING TO EAT BECAUSE HE SAID HIS BG ALWAYS DROPS AT NIGHT. BG WAS 77, PT ATE ICE CREAM, PUDDING, AND APPLESAUCE AND DRANK WATER AND AN ENSURE. NO C/O PAIN. 2 RN SKIN CHECK COMPLETED WITH ANNA ARENAS. PT HAD A SKIN TEAR ON R HEEL, NEW MEPILEX PLACED AND HEEL BOOTS PUT ON BILATERAL HEELS, PT HAS SCATTERED SCABS ON RLE, SPECIFICALLY R KNEE AND MORALES, SINDI, BUTTOCKS AND COCCYX WOUNDS COVERED WITH MEPILEX, CDI, BILATERAL SCAPULAS HAVE DARK PIGMENTED SKIN WITH OPEN RED AREAS, MEPILEXS PLACED ON BILATERAL SCAPULAS. PT ORIENTED TO SELF AND PLACE, ANISOCORIA, L SIDED WEAKNESS, MUSCLE FLICKERS NOTED IN LUE AND LLE. NO C/O PAIN, NO EVENTS OVERNIGHT. FIRE SAFETY REVIEWED, NO IGNITION SOURCES
[2022-12-07 07:25] VITALS: BP 124/68
[2022-12-07 08:30] LABS: BASOPHILS ABSOLUTE AUTO 0.05 K/mm3 (0.00-0.23); BASOPHILS PERCENT AUTO 1 % (0-2); EOSINOPHILS ABSOLUTE AUTO 0.16 K/mm3 (0.00-0.68); EOSINOPHILS PERCENT AUTO 2 % (0-6); Hematocrit 33.3 % (37.0-53.0); Hemoglobin 11.7 g/dL (13.5-17.5); IMMATURE GRAN ABSOLUTE AUTO 0.03 K/mm3 (0.00-0.10); IMMATURE GRAN PERCENT AUTO 0 % (0-1); LYMPHOCYTES ABSOLUTE AUTO 1.79 K/mm3 (0.84-5.20); LYMPHOCYTES PERCENT AUTO 26 % (21-46); MONOCYTES ABSOLUTE AUTO 0.54 K/mm3 (0.16-1.47); MONOCYTES PERCENT AUTO 8 % (4-13); Mean Corpuscular HGB 31.5 pg (26.0-34.0); Mean Corpuscular HGB Conc 35.1 g/dL (31.5-36.5); Mean Corpuscular Volume 90 fL (80-100); Mean Platelet Volume 9.2 fL (9.1-12.4); NEUTROPHILS PERCENT AUTO 63 % (41-73); Platelet Count 260 K/mm3 (150-400); RDW Coefficient Variation 13.9 % (11.7-14.2); RDW Standard Deviation 45.4 fL (35.1-46.3); Red Blood Cell Count 3.71 M/mm3 (4.30-5.90); White Blood Cell Count 6.97 K/mm3 (4.00-11.30)
[2022-12-07 08:46] LABS: Bun/Creatinine Ratio 36.8 (12.0-20.0); Calcium, Blood 8.4 mg/dL (8.5-10.1); Creatinine, Blood 0.41 mg/dL (0.60-1.20); Potassium, Blood 4.1 mmol/L (3.5-5.5)
[2022-12-07 15:12] LABS: SARS-Cov-2 (COVID-19) PCR, MMC NEGATIVE (NEGATIVE)
[2022-12-07 15:31] VITALS: BP 102/58
[2022-12-07] MEDS ORDERED: ASPI81CH PO (15:38)
[2022-12-07] MEDS ORDERED: HUMULIN R100 UNIT/2 IV (15:39)
--- NOTE | 2022-12-07 17:40 | NUR ---
SHIFT SUMMARY PT RECEIVED BARIUM SWALLOW STUDY TODAY. PT TO BE D/CARA TO [facility] TOMORROW INSTEAD OF TODAY DUE TO A HIGH BLOOD SUGAR OF 416. FOLLOWING BLOOD SUGARS SHOWED A TREND DOWN. NOTIFIED. PT VSS. PT COMMUNICATES CORRECTLY, USES CALL LIGHT APPROPRIATELY. PT CONFUSED ABOUT INSULIN ADMINISTRATION IN THE HOSPITAL COMPARED TO AT HOME. EDUCATION PROVIDED AND WAS MINIMALLY SUCCESSFUL. NO ACUTE EVENTS TO REPORT AT THIS TIME, PT IN A POSITION OF SAFETY AND COMFORT WITH BED LOCKED AND IN LOWEST POSITION, NONSKID SOCKS IN PLACE, BED ALARM ENABLED, AND CALL LIGHT WITHIN REACH.
--- NOTE | 2022-12-07 18:26 | NUR ---
WAITING FOR MEAL TRAY TO ARRIVE TO ADMINISTER SCHEDULED INSULIN DOSE OF NINE UNITS PER PT REQUEST.
[2022-12-07 19:35] VITALS: BP 117/65
[2022-12-08 04:48] VITALS: BP 117/64
--- NOTE | 2022-12-08 05:13 | NUR ---
SHIFT SUMMARY PT HAD A SANDWICH AND OTHER SNACKS RIGHT AFTER INSULIN ADMIN. LATER THE PT STATED HE NEEDED AN ADDITIONAL SANDWICH BECAUSE HE FELT HIS BLOOD SUGAR WAS STARTING TO GET LOW. BG 73, SANDWHICH AND SNACKS PROVIDED AGAIN. NO OTHER EVENTS OVERNIGHT.
[2022-12-08 07:44] VITALS: BP 118/65
[2022-12-08 08:04] LABS: BASOPHILS ABSOLUTE AUTO 0.04 K/mm3 (0.00-0.23); BASOPHILS PERCENT AUTO 0 % (0-2); EOSINOPHILS ABSOLUTE AUTO 0.19 K/mm3 (0.00-0.68); EOSINOPHILS PERCENT AUTO 2 % (0-6); Hematocrit 33.4 % (37.0-53.0); Hemoglobin 11.8 g/dL (13.5-17.5); IMMATURE GRAN ABSOLUTE AUTO 0.04 K/mm3 (0.00-0.10); IMMATURE GRAN PERCENT AUTO 0 % (0-1); LYMPHOCYTES ABSOLUTE AUTO 1.87 K/mm3 (0.84-5.20); LYMPHOCYTES PERCENT AUTO 16 % (21-46); MONOCYTES ABSOLUTE AUTO 0.69 K/mm3 (0.16-1.47); MONOCYTES PERCENT AUTO 6 % (4-13); Mean Corpuscular HGB 31.9 pg (26.0-34.0); Mean Corpuscular HGB Conc 35.3 g/dL (31.5-36.5); Mean Corpuscular Volume 90 fL (80-100); Mean Platelet Volume 9.9 fL (9.1-12.4); NEUTROPHILS ABSOLUTE AUTO 8.68 K/mm3 (1.96-9.15); NEUTROPHILS PERCENT AUTO 76 % (41-73); Platelet Count 272 K/mm3 (150-400); RDW Coefficient Variation 13.7 % (11.7-14.2); RDW Standard Deviation 45.8 fL (35.1-46.3); White Blood Cell Count 11.51 K/mm3 (4.00-11.30)
[2022-12-08 08:26] LABS: Bun/Creatinine Ratio 35.8 (12.0-20.0); Calcium, Blood 8.1 mg/dL (8.5-10.1); Creatinine, Blood 0.59 mg/dL (0.60-1.20); Potassium, Blood 4.7 mmol/L (3.5-5.5)
[2022-12-08] MEDS ORDERED: NOVOLOG FL100 UNIT/3 SC (11:25)
--- NOTE | 2022-12-08 12:58 | NUR ---
DISCHARGE NOTE PT DISCHARGED TO [facility], PICKED UP BY TRANSPORT. IV REMOVED. REPORT GIVE TO ANNA SCOTT. DISCHARGE INFORMATION AND PAPERWORK GIVEN TO THE SEED SPECIALIST. FAMILY INFORMED.
== END 2022-12-08 12:58 | DRG 637 ==
LOC: ER 11:24 → ICUE 13:20 → PCU 12-03 11:17 → MEDS 12-06 20:07
PROVIDERS: Emergency Medicine; Internal Medicine; Internal Medicine Critical Care Medicine; ADMIT Family Medicine
PROC: 5A1945Z Respiratory Ventilation, 24-96 Consecutive Hours (ICD-10-PCS; principal; 2022-11-30)
PROC: 0BH17EZ Insertion of Endotracheal Airway into Trachea, Via Natural or Artificial Opening (ICD-10-PCS; 2022-11-30)
PROC: 0DH67UZ Insertion of Feeding Device into Stomach, Via Natural or Artificial Opening (ICD-10-PCS; 2022-11-30)
PROC: 0T9B70Z Drainage of Bladder with Drainage Device, Via Natural or Artificial Opening (ICD-10-PCS; 2022-11-30)
DX: E10.649 Type 1 diabetes mellitus with hypoglycemia without coma (principal); G93.41 Metabolic encephalopathy; J69.0 Pneumonitis due to inhalation of food and vomit; E87.1 Hypo-osmolality and hyponatremia; I69.354 Hemiplegia and hemiparesis following cerebral infarction affecting left non-dominant side; M62.82 Rhabdomyolysis; E87.20 Acidosis, unspecified; E44.0 Moderate protein-calorie malnutrition; I10 Essential (primary) hypertension; H02.401 Unspecified ptosis of right eyelid; L89.892 Pressure ulcer of other site, stage 2; E10.622 Type 1 diabetes mellitus with other skin ulcer; Z20.822 Contact with and (suspected) exposure to COVID-19; R77.8 Other specified abnormalities of plasma proteins; S80.211A Abrasion, right knee, initial encounter; X58.XXXA Exposure to other specified factors, initial encounter; Z87.820 Personal history of traumatic brain injury; Z91.81 History of falling; Z88.5 Allergy status to narcotic agent; Z99.3 Dependence on wheelchair; Z88.8 Allergy status to other drugs, medicaments and biological substances; Z79.4 Long term (current) use of insulin
CPT/HCPCS: 0241U; 31500; 36415; 51702; 70450; 71045; 74230; 80048; 80053; 81001; 82140; 82550; 82947; 83036; 83605; 83690; 83735; 84100; 84145; 84146; 84484; 85025; 85027; 87040; 87086; 87633; 92526; 92610; 92611; 93005; 93010; 94002; 94003; 96365-59; 96375-59; 97110; 97129; 97163; 97165; 97530; 97535; 99285-25; A9270; C9113; G0480; J0692; J1650; J1790; J1815; J2060; J2310; J2543; J2704; J3010; J7030; J7050; J7060; U0002

== ENCOUNTER 2023-01-07 05:18 | Emergency (ER) | payer OTHER ==
[~2023-01-07] VITALS: Ht 185.4 cm; Wt 81.7 kg
[~2023-01-07 05:18] MED LIST changes: +ALBU90OI INH; +ALEVAZOL56.7 G1 TOP; +ASPI81CH PO; +Crestor20 MG PO; +HUMULIN N100 UNIT/3 SC; +HUMULIN R100 UNIT/2 IV; +NOVOLOG FL100 UNIT/3 SC; +Natrol Alpha 3300 MG PO; +Prinivil10 MG PO; +TRIDERM28.4 GM TOP
[2023-01-07 06:16] LABS: BASOPHILS ABSOLUTE AUTO 0.02 K/mm3 (0.00-0.23); BASOPHILS PERCENT AUTO 0 % (0-2); EOSINOPHILS ABSOLUTE AUTO 0.05 K/mm3 (0.00-0.68); EOSINOPHILS PERCENT AUTO 1 % (0-6); Hematocrit 31.7 % (37.0-53.0); Hemoglobin 11.5 g/dL (13.5-17.5); IMMATURE GRAN ABSOLUTE AUTO 0.04 K/mm3 (0.00-0.10); IMMATURE GRAN PERCENT AUTO 0 % (0-1); LYMPHOCYTES ABSOLUTE AUTO 1.03 K/mm3 (0.84-5.20); LYMPHOCYTES PERCENT AUTO 10 % (21-46); MONOCYTES ABSOLUTE AUTO 0.61 K/mm3 (0.16-1.47); MONOCYTES PERCENT AUTO 6 % (4-13); Mean Corpuscular HGB 34.6 pg (26.0-34.0); Mean Corpuscular HGB Conc 36.3 g/dL (31.5-36.5); Mean Corpuscular Volume 96 fL (80-100); Mean Platelet Volume 9.1 fL (9.1-12.4); NEUTROPHILS ABSOLUTE AUTO 8.52 K/mm3 (1.96-9.15); NEUTROPHILS PERCENT AUTO 83 % (41-73); Platelet Count 338 K/mm3 (150-400); RDW Coefficient Variation 17.3 % (11.7-14.2); RDW Standard Deviation 54.5 fL (35.1-46.3); Red Blood Cell Count 3.32 M/mm3 (4.30-5.90); White Blood Cell Count 10.27 K/mm3 (4.00-11.30)
[2023-01-07 06:36] LABS: Albumin, Blood 3.1 g/dL (3.4-5.0); Albumin/Globulin Ratio 0.7 (0.8-1.8); Bilirubin, Total 0.5 mg/dL (0.1-1.0); Bun/Creatinine Ratio 25.3 (12.0-20.0); Calcium, Blood 8.8 mg/dL (8.5-10.1); Creatinine, Blood 0.59 mg/dL (0.60-1.20); Globulin, Blood 4.4 g/dL (2.2-4.0); Potassium, Blood 4.6 mmol/L (3.5-5.5); Total Protein, Blood 7.5 g/dL (6.4-8.2)
[2023-01-07 10:24] VITALS: BP 153/70
== END 2023-01-07 10:14 | disposition home or self-care (01) ==
LOC: ER 05:18
PROVIDERS: Student in an Organized Health Care Education/Training Program
DX: E10.65 Type 1 diabetes mellitus with hyperglycemia (principal); I10 Essential (primary) hypertension; K21.9 Gastro-esophageal reflux disease without esophagitis; J44.9 Chronic obstructive pulmonary disease, unspecified; Z88.5 Allergy status to narcotic agent; Z88.8 Allergy status to other drugs, medicaments and biological substances; Z79.4 Long term (current) use of insulin; Z79.82 Long term (current) use of aspirin; Z79.899 Other long term (current) drug therapy; Z87.891 Personal history of nicotine dependence
CPT/HCPCS: 80053; 82947; 85025

== ENCOUNTER 2025-01-24 21:12 | Inpatient (IN) | payer OTHER ==
[~2025-01-24] VITALS: Ht 185.4 cm; Wt 60.5 kg
[2025-01-24] MEDS ORDERED: Ketorolac Tromethamine 15mg Vial IM ONE (22:05)
[2025-01-24] MEDS ORDERED: Ondansetron HCl 2 MG / ML 2ML Vial IV ONE (22:55)
[2025-01-24 23:37] LABS: BASOPHILS ABSOLUTE AUTO 0.05 K/mm3 (0.00-0.23); BASOPHILS PERCENT AUTO 0 % (0-2); EOSINOPHILS ABSOLUTE AUTO 0.02 K/mm3 (0.00-0.68); EOSINOPHILS PERCENT AUTO 0 % (0-6); Hematocrit 34.7 % (37.0-53.0); Hemoglobin 12.1 g/dL (13.5-17.5); IMMATURE GRAN ABSOLUTE AUTO 0.06 K/mm3 (0.00-0.10); IMMATURE GRAN PERCENT AUTO 0 % (0-1); LYMPHOCYTES ABSOLUTE AUTO 0.81 K/mm3 (0.84-5.20); LYMPHOCYTES PERCENT AUTO 4 % (21-46); MONOCYTES ABSOLUTE AUTO 0.59 K/mm3 (0.16-1.47); MONOCYTES PERCENT AUTO 3 % (4-13); Mean Corpuscular HGB Conc 34.9 g/dL (31.5-36.5); Mean Corpuscular Volume 91 fL (80-100); NEUTROPHILS ABSOLUTE AUTO 16.96 K/mm3 (1.96-9.15); NEUTROPHILS PERCENT AUTO 92 % (41-73); NRBC ABSOLUTE 0.00 K/mm3 (0.00-0.02); NRBC Auto 0.0 /100 WBC (0.0-0.2); Platelet Count 304 K/mm3 (150-400); RDW Coefficient Variation 13.9 % (11.7-14.2); RDW Standard Deviation 46.5 fL (35.1-46.3)
[2025-01-24] MEDS ORDERED: NS 1,000 ML IV SCH (23:50)
[2025-01-25] VITALS (18 sets, daily range): BP systolic 77–130; BP diastolic 42–66
[2025-01-25] LABS: Alanine Aminotransfer (ALT/SGP 19.0 U/L (12-78); Albumin, Blood 3.9 g/dL (3.4-5.0); Albumin/Globulin Ratio 1.2 (0.8-1.8); Anion Gap 15.0 mmol/L (3-11); Aspartate Aminotrans (AST/SGOT 18.0 U/L (12-37); Bilirubin, Total 1.0 mg/dL (0.1-1.0); Blood Urea Nitrogen 8.0 mg/dL (8-24); CO2, Blood 26.0 mmol/L (21-32); Calcium, Blood 9.1 mg/dL (8.5-10.1); Chloride, Blood 85.0 mmol/L (98-108); Creatinine, Blood 0.7 mg/dL (0.60-1.20); Globulin, Blood 3.2 g/dL (2.2-4.0); Glucose, Blood 453.0 mg/dL (70-99); Potassium, Blood 5.8 mmol/L (3.5-5.5); Sodium, Blood 120.0 mmol/L (136-145); Total Protein, Blood 7.1 g/dL (6.4-8.2)
[2025-01-25] MEDS ORDERED: Prochlorperazine Edisylate 10 mg Vial IV ONE (00:05)
[2025-01-25] MEDS ORDERED: FLU VACC TS2025-26(6MOS UP)/PF 45 MCG/0.5 ML SYRINGE IM SCH ×2 (00:15→13:00)
[2025-01-25 00:31] LABS: Prothrombin Time Results 12.2 Sec (9.7-11.5)
[2025-01-25] MEDS ORDERED: Insulin Human Lispro 100 Units/ML 3ML Syringe SC SCH ×2 (02:05→16:30)
[2025-01-25] MEDS ORDERED: Insulin Glargine 100 Unit/ML 3 ML SYR SC SCH (02:05)
[2025-01-25] MEDS ORDERED: NS 500 ML IV ONE (02:05)
[2025-01-25] MEDS ORDERED: NS 1,000 ML IV SCH (03:40)
[2025-01-25 04:31] LABS: BASOPHILS ABSOLUTE AUTO 0.02 K/mm3 (0.00-0.23); BASOPHILS PERCENT AUTO 0 % (0-2); EOSINOPHILS ABSOLUTE AUTO 0.00 K/mm3 (0.00-0.68); EOSINOPHILS PERCENT AUTO 0 % (0-6); Hematocrit 28.4 % (37.0-53.0); Hemoglobin 10.0 g/dL (13.5-17.5); IMMATURE GRAN ABSOLUTE AUTO 0.03 K/mm3 (0.00-0.10); IMMATURE GRAN PERCENT AUTO 0 % (0-1); LYMPHOCYTES ABSOLUTE AUTO 1.20 K/mm3 (0.84-5.20); LYMPHOCYTES PERCENT AUTO 11 % (21-46); MONOCYTES ABSOLUTE AUTO 0.49 K/mm3 (0.16-1.47); MONOCYTES PERCENT AUTO 5 % (4-13); Mean Corpuscular HGB Conc 35.2 g/dL (31.5-36.5); Mean Corpuscular Volume 90 fL (80-100); NEUTROPHILS ABSOLUTE AUTO 9.23 K/mm3 (1.96-9.15); NEUTROPHILS PERCENT AUTO 84 % (41-73); NRBC ABSOLUTE 0.00 K/mm3 (0.00-0.02); NRBC Auto 0.0 /100 WBC (0.0-0.2); Platelet Count 255 K/mm3 (150-400); RDW Coefficient Variation 13.7 % (11.7-14.2); RDW Standard Deviation 45.1 fL (35.1-46.3)
[2025-01-25 04:54] LABS: Alanine Aminotransfer (ALT/SGP 16.0 U/L (12-78); Albumin, Blood 3.1 g/dL (3.4-5.0); Albumin/Globulin Ratio 1.1 (0.8-1.8); Anion Gap 12.0 mmol/L (3-11); Aspartate Aminotrans (AST/SGOT 16.0 U/L (12-37); Bilirubin, Total 0.9 mg/dL (0.1-1.0); Blood Urea Nitrogen 10.0 mg/dL (8-24); CO2, Blood 23.0 mmol/L (21-32); Calcium, Blood 8.1 mg/dL (8.5-10.1); Chloride, Blood 93.0 mmol/L (98-108); Creatinine, Blood 0.78 mg/dL (0.60-1.20); Globulin, Blood 2.7 g/dL (2.2-4.0); Glucose, Blood 410.0 mg/dL (70-99); Potassium, Blood 5.7 mmol/L (3.5-5.5); Sodium, Blood 122.0 mmol/L (136-145); Total Protein, Blood 5.8 g/dL (6.4-8.2)
[2025-01-25 06:16] LABS: Osmolality, Serum 283.0 mos/KG (275-300)
--- NOTE | 2025-01-25 06:45 | NUR ---
NOC SUMMARY- PT ARRIVED TO ROOM IN NO DISTRESS. PT DENIES PAIN. PT FOLLOWS DIRECTIONS WELL. PT HAS GARBBLED SPEECH AND IS DIFFICULT TO UNDERSTAND AT TIMES. PT WAS CLEANED AND CHANGED INTO A GOWN. PT AGREED TO USE PUREWICK DEVICE. PT HAS STAGE 2 SORE ON COCCYX c MEPILEX IN PLACED. NO TELE EVENTS REPORTED. PT HAS RECIEVED INSULIN ORDERED. CALL LIGHT IN REACH
[2025-01-25] MEDS ORDERED: Insulin Regular 100 UNIT/ML 10ML Vial IV ONE (07:00)
[2025-01-25 08:53] LABS: Anion Gap 9.0 mmol/L (3-11); Blood Urea Nitrogen 10.0 mg/dL (8-24); CO2, Blood 27.0 mmol/L (21-32); Calcium, Blood 8.3 mg/dL (8.5-10.1); Chloride, Blood 95.0 mmol/L (98-108); Creatinine, Blood 0.66 mg/dL (0.60-1.20); Glucose, Blood 252.0 mg/dL (70-99); Potassium, Blood 4.5 mmol/L (3.5-5.5); Sodium, Blood 126.0 mmol/L (136-145)
[2025-01-25] MEDS ORDERED: Tranexamic Acid 100 ML IV SCH (09:30)
[2025-01-25] MEDS ORDERED: CeFAZolin Sodium 2,000 MG in NS 100 ML IV SCH ×2 (09:30→20:00)
[2025-01-25] MEDS ORDERED: Rocuronium Bromide 10 MG/ML 5ML Injection IV ONE (09:47)
[2025-01-25] MEDS ORDERED: FentaNYL Citrate 50 MCG/ML 2 ML Injection ONE (09:48)
[2025-01-25] MEDS ORDERED: CeFAZolin Sodium 2,000 MG VIAL ONE (10:02)
--- NOTE | 2025-01-25 11:13 | NUR ---
History, Chart, Medications and Allergies reviewed before start of procedure.PRE OP TEACHING DONE. PT HAS LEFT SIDE WEEKNESS AND MODERATE AGHAGIA. BUT ABLE TO COMMUNICATE
[2025-01-25] MEDS ORDERED: Bupivacaine 0.5% W/EPI 1:200000 SDV 30 ML Vial ONE (11:18)
[2025-01-25] MEDS ORDERED: ePHEDrine Sulfate 50 MG/ML 1ML Injection ONE (11:41)
[2025-01-25] MEDS ORDERED: Dexamethasone Sod Phos 10 MG/ML 1ML VIAL ONE (12:02)
[2025-01-25] MEDS ORDERED: Sugammadex Sodium 200 MG/2ML SDV (100 MG/ML) ONE (12:02)
[2025-01-25] MEDS ORDERED: Ondansetron HCl 2 MG / ML 2ML Vial ONE (12:02)
[2025-01-25] MEDS ORDERED: Phenylephrine HCl 100 MCG/ML-NS 10MLSYR (1MG/10ML) ONE (12:02)
[2025-01-25] MEDS ORDERED: HYDROmorphone HCl/Pf 1MG SYR IV PRN ×2 (12:20→12:25)
[2025-01-25] MEDS ORDERED: FentaNYL Citrate 50 MCG/ML 2 ML Injection IV PRN ×3 (12:20→15:00)
[2025-01-25] MEDS ORDERED: HydrALAZINE HCl 20 MG / ML 1ML Vial IV PRN (12:20)
[2025-01-25] MEDS ORDERED: Ondansetron HCl 2 MG / ML 2ML Vial IV PRN (12:20)
[2025-01-25] MEDS ORDERED: Albuterol 2.5 MG/3 ML VIAL INH PRN (12:25)
[2025-01-25] MEDS ORDERED: Magnesium Hydroxide Conc 10 ML UDC PO PRN (13:00)
--- NOTE | 2025-01-25 13:30 | NUR ---
ARRIVAL TO SURG FLOOR TO FLOOR VIA HOSP BED. A&O x4, VSS. L HIP DRESSING C/D/I. STATES NO PAIN. SNACKS & DRINKS GIVEN. CALL LIGHT WITHIN REACH.
--- NOTE | 2025-01-25 17:59 | NUR ---
SHIFT SUMMARY S/P L HIP REPAIR. A&O x4, VSS. HX TBI & CVA - L SIDED & SPEECH DEFICIT. L HIP w/GAUZE & FOAM TAPE, C/D/I. USES PUREWICK FOR VOIDING. USES WHEELCHAIR AT BASELINE. STATES NO PAIN. TOLERATING REGULAR DIET WELL. CURRENTLY RESTING IN BED w/FAMILY @ BEDSIDE & CALL LIGHT WITHIN REACH.
[2025-01-26] VITALS (7 sets, daily range): BP systolic 95–122; BP diastolic 51–82
[2025-01-26 04:46] LABS: BASOPHILS ABSOLUTE AUTO 0.01 K/mm3 (0.00-0.23); BASOPHILS PERCENT AUTO 0 % (0-2); EOSINOPHILS ABSOLUTE AUTO 0.00 K/mm3 (0.00-0.68); EOSINOPHILS PERCENT AUTO 0 % (0-6); Hematocrit 21.1 % (37.0-53.0); Hemoglobin 7.4 g/dL (13.5-17.5); IMMATURE GRAN ABSOLUTE AUTO 0.04 K/mm3 (0.00-0.10); IMMATURE GRAN PERCENT AUTO 0 % (0-1); LYMPHOCYTES ABSOLUTE AUTO 1.58 K/mm3 (0.84-5.20); LYMPHOCYTES PERCENT AUTO 14 % (21-46); MONOCYTES ABSOLUTE AUTO 0.80 K/mm3 (0.16-1.47); MONOCYTES PERCENT AUTO 7 % (4-13); Mean Corpuscular HGB Conc 35.1 g/dL (31.5-36.5); Mean Corpuscular Volume 90 fL (80-100); NEUTROPHILS ABSOLUTE AUTO 9.29 K/mm3 (1.96-9.15); NEUTROPHILS PERCENT AUTO 79 % (41-73); NRBC ABSOLUTE 0.00 K/mm3 (0.00-0.02); NRBC Auto 0.0 /100 WBC (0.0-0.2); Platelet Count 206 K/mm3 (150-400); RDW Coefficient Variation 13.8 % (11.7-14.2); RDW Standard Deviation 45.4 fL (35.1-46.3)
--- NOTE | 2025-01-26 05:01 | NUR ---
SHIFT SUMMARY: PT AOX4, CALLS APPROPRIATELY AND ABLE TO MAKE NEEDS KNOWN. DRESSING WERE CDI ALL NIGHT UNTIL ~0430, HAD SOME LEAKAGE OUT OF THE SUPERIOR INCISION SITE. DRESSING CHANGED BY CHARGE NURSE. NO OOZING, OR DISCHARGE, REDNESS OR SWELLING NOTED ON SITE. PT TOLERATED DRESSING CHANGE WELL. HAVING GOOD URINE OUTPUT. CBGS WERE HIGH THIS EVENING, DIET CHANGED TO CC. PT TOLERATING MEDICATIONS WELL, NO ACUTE OVERNIGHT EVENTS. PT IN BED RESTING, BED IN LOWEST POSITION, CALL LIGHT IN REACH. CONTINUING CARE.
[2025-01-26 05:06] LABS: Anion Gap 9.0 mmol/L (3-11); Blood Urea Nitrogen 8.0 mg/dL (8-24); CO2, Blood 27.0 mmol/L (21-32); Calcium, Blood 8.3 mg/dL (8.5-10.1); Chloride, Blood 96.0 mmol/L (98-108); Creatinine, Blood 0.49 mg/dL (0.60-1.20); Glucose, Blood 297.0 mg/dL (70-99); Potassium, Blood 4.5 mmol/L (3.5-5.5); Sodium, Blood 127.0 mmol/L (136-145)
[2025-01-26] MEDS ORDERED: Tranexamic Acid 100 ML IV ONE ×2 (08:40→12:00)
[2025-01-26] MEDS ORDERED: Enoxaparin 40 MG/0.4 ML SYR SC SCH (09:00)
--- NOTE | 2025-01-26 09:00 | NUR ---
UPDATE MD AMADO CALLED REGARDING RUN OF V-TACH. NO NEW ORDERS. PT ASYMPTOMATIC AT THIS TIME. PER NIGHT RN - L HIP DRESSING SATURATED w/BLOOD & CHANGED OVERNIGHT. MD AMADO & KEZIA NOTIFIED OF FINDINGS & TRENDS RELATED TO H&H. NO NEW DRAINAGE AT THIS TIME. NO SYMPTOMS OF BLEEDING OR BRUISING NOTED. ORDERS TO HOLD LOVENOX & ADMINISTER 2 DOSES OF TXA 3 HOURS APART. ADMINISTERED PER EMAR.
--- NOTE | 2025-01-26 11:28 | NUR ---
UPDATE DR AMADO CALLED REGARDING BLOOD SUGAR OF 408 @ APPROXIMATELY 1000. ANEUDY TO BEDSIDE, VERBAL ORDERS TO UPDATE SLIDING SCALE INSULIN LISPRO FROM LOW TO HIGH CORRECTION. INSULIN ADMINISTERED PER EMAR.
[2025-01-26] MEDS ORDERED: Insulin Human Lispro 100 Units/ML 3ML Syringe SC SCH (11:30)
[2025-01-26] MEDS ORDERED: DEXTROMETHORPHAN/BENZOCAINE 1 EACH LOZENGE MT PRN (15:35)
--- NOTE | 2025-01-26 17:20 | NUR ---
SHIFT SUMMARY SEE PREVIOUS NOTES. POD 1 L FX REPAIR. A&O x4, VSS. L HIP w/XEROFORM, GAUZE & PRESSURE TAPE, C/D/I. TOLERATING REGULAR DIET WELL. USES PUREWICK TO VOID DUE TO BEDREST. USES WALKER AT BASELINE. POST NOTES - BLOOD SUGAR STABLIZING. HR IN 90-100'S, BP STABLE. NO BLEEDING NOTED FROM SURGICAL SITE. STATES THROAT PAIN - THAWANI NOTIFIED, ORDER FOR CEPACAL LOZENGES. CURRENTLY RESTING IN BED w/FAMILY AT BEDSIDE & CALL LIGHT WITHIN REACH.
--- NOTE | 2025-01-26 22:12 | NUR ---
ASSUMPTION OF CARE: THIS RN ASSUMED CARE OF PATIENT. AWAKE DURING SHIFT CHANGE REPORT. SITTING UP IN BED. BREATHING EVEN AND UNLABORED c ROOM AIR. PUREWICK IN PLACE c YELLOW URINE DRAINING TO SUCTION. MOST RECENT TELE STRIP IN CHART INTERPRETED SINUS @ 96bpm. CHECKING GLUCOSE ON PERSONAL MONITOR; < 200. FACILITY MACHINE SHOWING 171. PT PLEASED. BED IN LOWEST POSITION. CALL LIGHT WITHIN REACH. ACUTE NEEDS MET.
[2025-01-27] VITALS (11 sets, daily range): BP systolic 105–121; BP diastolic 51–71
--- NOTE | 2025-01-27 02:59 | NUR ---
NOTIFIED BY ASBESTOS SIDING INSTALLER THAT SHE CHECKED PT'S GLUCOSE LEVEL AT REQUEST OF PATIENT. RESULT OF 335.
[2025-01-27 04:22] LABS: Hematocrit 20.2 % (37.0-53.0); Hemoglobin 7.1 g/dL (13.5-17.5)
--- NOTE | 2025-01-27 06:25 | NUR ---
END OF SHIFT SUMMARY: A&Ox4. PLEASANT AND COOPERATIVE WITH CARE. CALLS APPROPRIATELY AND IS ABLE TO ADVOCATE NEEDS EFFECTIVELY. VSS. TELE STRIP IN CHART REVIEWED AND INTERPRETED SINUS IN 90s; NO OVERNIGHT TELE EVENTS. BREATHING EVEN AND UNLABORED c RA. CONTINENT OF BOWEL AND PUREWICK FOR BLADDER INCONTINENCE. TOLERATING DIET. REFUSED STOOL SOFTENER LAST NIGHT. GLUCOSE @ HS 171; NOT INDICATIVE OF SS INSULIN COVERAGE. REQUESTED SUGAR CHECK AT 0300 YIELDED 335 WHICH TROUBLED HIM SOME. NO OTHER C / O PAIN OR DISCOMFORT T/O NIGHT. BED IN LOWEST POSITION, CALL LIGHT WITHIN REACH, ALL NEEDS MET. REPORT TO ONCOMING NURSE.
[2025-01-27] MEDS ORDERED: Insulin Glargine 100 Unit/ML 3 ML SYR SC SCH (09:00)
[2025-01-27] MEDS ORDERED: Arginine/Glutamine/Calcium Hmb 1 Packet PO SCH (09:00)
[2025-01-27] MEDS ORDERED: NS 500 ML IV SCH (11:20)
[2025-01-27] MEDS ORDERED: Insulin Human Lispro 100 Units/ML 3ML Syringe SC SCH (12:00)
--- NOTE | 2025-01-27 21:30 | NUR ---
CALL TO HOSPITALIST. CALL PLACED TO CLARIFY CHEM BG ORDERS. PT'S BG IS TRENDING DOWN AND IS 151MG/DL WHEN IT WAS IN THE 300-400MG/DL DURING DAY SHIFT. NOTIFIED HOSPITALIST THAT PT DECLINED INSULIN COVERAGE AT 151MG/DL. NEW ORDERS RECEIVED TO CHANGE FROM Q4 HOUR CHECKS TO Q6 HOUR CHEM BG CHECKS WITH CONTINUED SLIDE SCALE COVERAGE.
[2025-01-28] VITALS (7 sets, daily range): BP systolic 108–126; BP diastolic 58–74
--- NOTE | 2025-01-28 03:30 | NUR ---
TELEMETRY EVENT. RECEIVED CALL FROM TELEMETRY REGARDING ST ELEVATION. THIS RN IMMEDIATELY VISUALIZED PATIENT, PT DENIES SOB OR CHEST PAIN WHEN ASKED. NOTIFIED PIPE MANUFACTURE SUPERVISOR QUYEN VÁZQUEZ OF SITUATION, AND SHE OBTAINED EKG. PT VERBALIZED PAIN IN LEFT HIP AND REQUESTED PAIN MEDICATION.
--- NOTE | 2025-01-28 05:00 | NUR ---
TELEMETRY UPDATE. CALL PLACED TO TELEMETRY PT IS SR AT [address] ELEVATION. VISULAIZED PT AND CONTINUES TO DENY SOB OR CHEST PAIN/PRESSURE. CALL LIGHT IN REACH.
[2025-01-28 05:55] LABS: BASOPHILS ABSOLUTE AUTO 0.03 K/mm3 (0.00-0.23); BASOPHILS PERCENT AUTO 0 % (0-2); EOSINOPHILS ABSOLUTE AUTO 0.15 K/mm3 (0.00-0.68); EOSINOPHILS PERCENT AUTO 2 % (0-6); Hematocrit 23.4 % (37.0-53.0); Hemoglobin 8.2 g/dL (13.5-17.5); IMMATURE GRAN ABSOLUTE AUTO 0.03 K/mm3 (0.00-0.10); IMMATURE GRAN PERCENT AUTO 0 % (0-1); LYMPHOCYTES ABSOLUTE AUTO 2.06 K/mm3 (0.84-5.20); LYMPHOCYTES PERCENT AUTO 22 % (21-46); MONOCYTES ABSOLUTE AUTO 0.77 K/mm3 (0.16-1.47); MONOCYTES PERCENT AUTO 8 % (4-13); Mean Corpuscular HGB Conc 35.0 g/dL (31.5-36.5); Mean Corpuscular Volume 89 fL (80-100); NEUTROPHILS ABSOLUTE AUTO 6.47 K/mm3 (1.96-9.15); NEUTROPHILS PERCENT AUTO 68 % (41-73); NRBC ABSOLUTE 0.00 K/mm3 (0.00-0.02); NRBC Auto 0.0 /100 WBC (0.0-0.2); Platelet Count 227 K/mm3 (150-400); RDW Coefficient Variation 14.6 % (11.7-14.2); RDW Standard Deviation 47.3 fL (35.1-46.3)
--- NOTE | 2025-01-28 06:07 | NUR ---
TELEMETRY EVENT. CALL RECEIVED FROM TELEMETRY THAT PT IS HAVING ALTERNATING BUNDLES. PT STILL IN NSR AT 92. THIS RN IMMEDIATLY VISUALIZED PATIENT. PT DENIES SOB, CHEST PAIN/PRESSURE OR N/V. CLARIFIED WITH TELE THAT NO ST ELEVATION IS PRESENT. DISCUSSED EVENT WITH CONTOUR SANDER.
[2025-01-28 06:36] LABS: Alanine Aminotransfer (ALT/SGP 15.0 U/L (12-78); Albumin, Blood 2.9 g/dL (3.4-5.0); Albumin/Globulin Ratio 1.0 (0.8-1.8); Anion Gap 7.0 mmol/L (3-11); Aspartate Aminotrans (AST/SGOT 20.0 U/L (12-37); Bilirubin, Total 1.0 mg/dL (0.1-1.0); Blood Urea Nitrogen 9.0 mg/dL (8-24); CO2, Blood 33.0 mmol/L (21-32); Calcium, Blood 8.5 mg/dL (8.5-10.1); Chloride, Blood 93.0 mmol/L (98-108); Creatinine, Blood 0.5 mg/dL (0.60-1.20); Globulin, Blood 2.8 g/dL (2.2-4.0); Glucose, Blood 155.0 mg/dL (70-99); Potassium, Blood 3.6 mmol/L (3.5-5.5); Sodium, Blood 129.0 mmol/L (136-145); Total Protein, Blood 5.7 g/dL (6.4-8.2)
--- NOTE | 2025-01-28 07:33 | NUR ---
SHIFT SUMMARY NOC. PT POD 3 FOR LEFT HIP NAILING. DRESSING TO HIP C/D/I. PT MEDICATED FOR PAIN X1 WITH REPORTED RELIEF OF SX. PT'S BLOOD SUGARS IMPROVED FROM YESTERDAY. PT DECLINED SHORT ACTING INSULIN AT 0000 AND 0600 DUE TO NOT BEING AT "A MEAL" TIME. CHEM BG BELOW 170 THIS SHIFT. TELEMETRY INTACT, SEE PREVIOUS NOTES, PT ASYMPTOMATIC AND DENIES SOB, CHEST PAIN OR PRESSURE. MAKES NEEDS KNOWN, CALL LIGHT IN REACH.
[2025-01-28] MEDS ORDERED: Insulin Human Lispro 100 Units/ML 3ML Syringe SC SCH ×3 (11:30→21:00)
--- NOTE | 2025-01-28 12:05 | NUR ---
Pt. is awake in bed when he welcomes my visit. While communication was difficult at times, this elevator mechanic apprentice was able to facilitate a short life review. Pt. verbalized that he was jainism and welcomed prayer. Prayed with Pt. (in [place]) and gave the benediction in Chinese. Pt. displayed evidence of being encouraged and verbalized gratitude for the spiritual care visit.
[2025-01-29 00:19] VITALS: BP 117/58
[2025-01-29 04:34] VITALS: BP 129/61
--- NOTE | 2025-01-29 06:02 | NUR ---
SHIFT SUMMARY NO ACUTE CHANGES TONIGHT. PT IS POD 4 LEFT HIP NAILING. GAUZE AND PRESSURE TAPE TO LEFT HIP INCISION CDI. BRUISING AND SWELLING NOTED ON LEFT HIP/THIGH. REF ICE AND DENIED NEED FOR PAIN MEDICATION. ABLE TO REPOSITION SELF WELL IN BED. PUREWICK CHANGED DUE TO LEAKING, PT TOLERATED WELL. HR SR AT 89 BPM PER INTERPRETER AND TRANSLATOR. MIN PO INTAKE. PLAN FOR DC TO SNF WHEN ABLE AND CONT THERAPY. PT CURRENTLY IN BED WITH EYES CLOSED, RESP EVEN AND CALL LIGHT IN REACH. BED ALARM ON FOR SAFETY. WILL GIVE REPORT TO ONCOMING RN.
[2025-01-29 07:16] VITALS: BP 111/53
[2025-01-29 11:38] LABS: BASOPHILS ABSOLUTE AUTO 0.04 K/mm3 (0.00-0.23); BASOPHILS PERCENT AUTO 1 % (0-2); EOSINOPHILS ABSOLUTE AUTO 0.12 K/mm3 (0.00-0.68); EOSINOPHILS PERCENT AUTO 2 % (0-6); Hematocrit 23.6 % (37.0-53.0); Hemoglobin 8.3 g/dL (13.5-17.5); IMMATURE GRAN ABSOLUTE AUTO 0.03 K/mm3 (0.00-0.10); IMMATURE GRAN PERCENT AUTO 0 % (0-1); LYMPHOCYTES ABSOLUTE AUTO 1.61 K/mm3 (0.84-5.20); LYMPHOCYTES PERCENT AUTO 22 % (21-46); MONOCYTES ABSOLUTE AUTO 0.64 K/mm3 (0.16-1.47); MONOCYTES PERCENT AUTO 9 % (4-13); Mean Corpuscular HGB Conc 35.2 g/dL (31.5-36.5); Mean Corpuscular Volume 89 fL (80-100); NEUTROPHILS ABSOLUTE AUTO 4.77 K/mm3 (1.96-9.15); NEUTROPHILS PERCENT AUTO 66 % (41-73); NRBC ABSOLUTE 0.00 K/mm3 (0.00-0.02); NRBC Auto 0.0 /100 WBC (0.0-0.2); Platelet Count 290 K/mm3 (150-400); RDW Coefficient Variation 14.4 % (11.7-14.2); RDW Standard Deviation 46.4 fL (35.1-46.3)
[2025-01-29 12:06] LABS: Alanine Aminotransfer (ALT/SGP 17.0 U/L (12-78); Albumin, Blood 2.9 g/dL (3.4-5.0); Albumin/Globulin Ratio 0.9 (0.8-1.8); Anion Gap 9.0 mmol/L (3-11); Aspartate Aminotrans (AST/SGOT 24.0 U/L (12-37); Bilirubin, Total 1.1 mg/dL (0.1-1.0); Blood Urea Nitrogen 14.0 mg/dL (8-24); CO2, Blood 30.0 mmol/L (21-32); Calcium, Blood 8.6 mg/dL (8.5-10.1); Chloride, Blood 92.0 mmol/L (98-108); Creatinine, Blood 0.44 mg/dL (0.60-1.20); Globulin, Blood 3.2 g/dL (2.2-4.0); Glucose, Blood 213.0 mg/dL (70-99); Potassium, Blood 3.9 mmol/L (3.5-5.5); Sodium, Blood 127.0 mmol/L (136-145); Total Protein, Blood 6.1 g/dL (6.4-8.2)
[2025-01-29 15:01] VITALS: BP 118/63
--- NOTE | 2025-01-29 17:35 | NUR ---
DISCHARGE NOTE PT IS A/OX4, SPEECH IS MUMBLED. PT IS INCONT OF URINE. PT WAS ABLE TO TRANSFER IND TO . TOLERATING PO INTAKE, DENIES N/V, PAIN MANAGED. REPORT GIVEN TO JOSEPH AT R.
== END 2025-01-29 17:34 | DRG 481 ==
LOC: ER 21:12 → SURS 23:52
PROVIDERS: Internal Medicine; Orthopaedic Surgery; Student in an Organized Health Care Education/Training Program; ADMIT Internal Medicine
PROC: 30233N1 Transfusion of Nonautologous Red Blood Cells into Peripheral Vein, Percutaneous Approach (ICD-10-PCS; 2025-01-25)
PROC: 0QS706Z Reposition Left Upper Femur with Intramedullary Internal Fixation Device, Open Approach (ICD-10-PCS; principal; 2025-01-25 10:30)
DX: S72.142A Displaced intertrochanteric fracture of left femur, initial encounter for closed fracture (principal); D62 Acute posthemorrhagic anemia; E87.1 Hypo-osmolality and hyponatremia; W18.30XA Fall on same level, unspecified, initial encounter; E78.5 Hyperlipidemia, unspecified; I10 Essential (primary) hypertension; F17.210 Nicotine dependence, cigarettes, uncomplicated; E87.5 Hyperkalemia; E11.65 Type 2 diabetes mellitus with hyperglycemia; Z87.820 Personal history of traumatic brain injury; Z88.6 Allergy status to analgesic agent; Z88.1 Allergy status to other antibiotic agents; Z88.8 Allergy status to other drugs, medicaments and biological substances; Z88.5 Allergy status to narcotic agent; Z79.899 Other long term (current) drug therapy; Z79.82 Long term (current) use of aspirin; Z79.4 Long term (current) use of insulin
CPT/HCPCS: 36415; 72192; 73502; 73560-LT; 73590; 73600; 73620; 80048; 80053; 82947; 83036; 83880; 83930; 83935; 84300; 85014; 85018; 85025; 85610; 86850; 86900; 86901; 86923; 93005; 93010; 96372-59; 96374; 97110; 97162; 97166; 97530; 99285-25; A9270; C1713; C1769; J0690; J0780; J1100; J1650; J1815; J1885; J2371; J2405; J2704; J3010; J7030; J7040; J7120; P9016